=== PATIENT | female | born 1930 | race Caucasian/White ===

== ENCOUNTER → 2016-11-19 | Outpatient (CLI) | payer MEDICARE, OTHER ==
[~2016-11-19] MED LIST: ACET650T3 PO; ALEN10TA PO; AMLO10TA2 PO; AMLO5TAB2 PO; BIMA01SOL OU; BISO10TA PO; CALC600T60 PO; CARB10TACH PO; CARB300C7 PO; COSO1SOL3 OU; COUM2.5T17 PO; HYDR-3713 PO; ISTA0.5S OU; LATA5OPD OU; LEVO88TA3 PO; MULTCAP8 PO; PRED10PA PO; PRED10TA2 PO; PRED25TA PO; REFR0.5D8 OU; REST0.05 OU; SERT50TA PO; TIMO0.5S29 OU; VITA400C35 PO; VITA500C24 PO; VITA500T3 PO; WARF-23 PO; WARF05TA PO; [UNRECOGNIZED DRUG - CODE] PO
[2016-11-19 12:31] LABS: INR 1.05
--- NOTE | 2016-11-19 12:42 | REP ---
Clinical: Preoperative assessment. Technique: PA and lateral. Comparison: None. Findings: Linear fibroatelectatic changes along the basilar right upper lobe and diffuse chronic interstitial changes are suggested. No prior exams for comparison. The mediastinum and cardiac silhouette are relatively normal. Atherosclerotic changes to the thoracic aorta noted. Airway is midline. No effusion. No pneumothorax. Skeletal structures demonstrate age-related changes. Impression: Likely chronic appearing changes as described above. No prior examination available for comparison. Signed by Bismark Marie MD 11/19/2016 12:33 P
[2016-11-19 12:46] LABS: ALBUMIN 3.3 GM/DL (3.2-5.2); ALBUMIN/GLOBULIN RATIO 0.94 (1.00-1.93); BILIRUBIN,TOTAL 0.3 MG/DL (0.2-1.0); CALCIUM LEVEL 10.4 MG/DL (8.8-10.2); CREATININE FOR GFR 1.05 MG/DL (0.55-1.02); GLOMERULAR FILTRATION RATE 53.2 (>32); POTASSIUM SERUM 4.6 MEQ/L (3.5-5.1); TOTAL PROTEIN 6.8 GM/DL (6.4-8.2)
[2016-11-19 13:03] LABS: MEAN CORPUSCULAR HEMOGLOBIN 30.9 pg (27.0-33.0); MEAN CORPUSCULAR HGB CONC 31.6 g/dl (32.0-36.5); MEAN CORPUSCULAR VOLUME 97.7 fl (80.0-96.0); RED CELL DISTRIBUTION WIDTH 13.2 % (11.5-14.5); WHITE BLOOD COUNT 9.4 K/mm3 (4.0-10.0)
--- NOTE | 2016-11-21 13:25 | ECGEPIP ---
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
--- NOTE | 2016-11-24 20:45 | HPE ---
DATE OF PLANNED ADMISSION: 12/02/2016 REFERRING PHYSICIAN: Ye Gong MD CHIEF COMPLAINT: Right hip pain. HISTORY OF PRESENT ILLNESS: This a pleasant 86-year-old female with progressively worsening right hip pain and stiffness. She has failed to improve with conservative treatment. She has elected for surgery for her continued symptoms. She has pain with weightbearing activities and her activities of daily living. X-rays of her hip are notable for advanced osteoarthritis of the right hip joint. She has consented for a right total hip arthroplasty by Dr. Ye gong. Medical optimization was performed by Dr. Kolb. ALLERGIES: PENICILLIN. CURRENT MEDICATIONS: - Synthroid 88 mcg once a day - carbamazepine 100 mg 3 tablets once a day - bisoprolol 10 mg 1/2 tablet once a day - amlodipine 10 mg 1/2 tablet once a day - vitamin C 500 mg once a day - multivitamin once a day - Zoloft 50 mg once a day - Refresh Restasis eye drops when needed - atenolol in the morning - Lumigan at night PAST MEDICAL HISTORY: Includes hypertension, hypothyroidism, anxiety and depression. PAST SURGICAL HISTORY: Includes varicose vein removal, hysterectomy and cholecystectomy. SOCIAL HISTORY: This patient is retired. Does not smoke, does not drink alcohol. REVIEW OF SYSTEMS: This patient denies chest pain, heart palpitations, cough, wheezing, difficulty breathing and shortness of breath. She denies abdominal pain, nausea, vomiting, diarrhea or constipation. She denies recent upper respiratory infection or urinary tract infection symptoms. She does complain of persistent pain in her right hip and pain with weightbearing activities in her right hip. PHYSICAL EXAMINATION: General: She is well-nourished, well-developed in no acute distress, alert female patient. She walks with a moderate limp favoring her right lower extremity. She does use a walker. Vital signs: She is 62 inches tall, weighs 110 pounds with a temperature of 97.8, blood pressure 130/90, pulse of 62 and respirations of 16. Neck was supple without adenopathy or jugular venous distension. There were no carotid bruits appreciated upon auscultation. Lungs were clear to auscultation without rales or wheeze throughout. Heart: Regular rate and rhythm. Abdomen: Bowel sounds were present. Extremities: Examination of the hip revealed intact skin with decreased range of motion through the hip secondary to pain and stiffness. The limb is neurovascularly intact. LABORATORY DATA: Chest x-ray showed chronic appearing changes without any acute cardiopulmonary disease processes. EKG showed sinus bradycardia with occasional premature ventricular contraction (PVC) at 56 beats per minute. CBC showed a red count of 3.86, hemoglobin 11.9, MCV of 97.7. Mean corpuscular hemoglobin concentration of 31.6, otherwise within normal limits. Sed rate was 54, glucose 114, BUN 25, creatinine 1.05 for a GFR of 53.2. Sodium 138, potassium 4.6. Protime 13.8, INR 1.05. Urine culture showed E-coli. UA showed 1+ bacteria, otherwise within normal limits with a specific gravity 1.018. IMPRESSION: 1. Symptomatic osteoarthritis of the right hip. 2. Asymptomatic urinary tract infection. PLAN: The patient was placed on Macrobid by Dr. Kolb. She will be able to finish that course of antibiotics prior to her surgery. Otherwise, she is consented for a right total hip arthroplasty by Dr. Ye Gong.
== END ==
LOC: M ADMPAT 10:25
PROVIDERS: ATTEND Orthopaedic Surgery
DX: M16.11 Unilateral primary osteoarthritis, right hip (principal); Z79.01 Long term (current) use of anticoagulants; N39.0 Urinary tract infection, site not specified; B96.29 Other Escherichia coli [E. coli] as the cause of diseases classified elsewhere

== ENCOUNTER 2016-12-02 06:49 | Inpatient (IN) | payer MEDICARE, OTHER ==
[2016-11-19 11:21] VITALS: BP 128/78
[~2016-12-02] VITALS: Ht 160 cm; Wt 51.1 kg
[2016-12-02] VITALS (7 sets, daily range): BP systolic 124–182; BP diastolic 70–81
[~2016-12-02 06:49] MED LIST changes: -ACET650T3 PO; -AMLO10TA2 PO; -CARB10TACH PO; -CARB300C7 PO; -COSO1SOL3 OU; -COUM2.5T17 PO; -HYDR-3713 PO; -PRED10TA2 PO; -PRED25TA PO; -REFR0.5D8 OU; -TIMO0.5S29 OU; -VITA500C24 PO; -WARF-23 PO; -WARF05TA PO
[2016-12-02] MEDS ORDERED: LR 1,000 ML IV SCH ×2 (07:30→12:15)
[2016-12-02] MEDS ORDERED: TRANEXAMIC ACID 100 MG/ML 10ML VIAL As Ordered ONE (07:45)
[2016-12-02] MEDS ORDERED: EPINEPHrine INJ 1 MG/ML 1ML AMP As Ordered ONE (07:45)
[2016-12-02] MEDS ORDERED: BUPIVACAINE HCL 0.25% 30 ML VIAL As Ordered ONE (07:45)
[2016-12-02] MEDS ORDERED: CLINDAMYCIN INJ 900MG/6ML VIAL As Ordered ONE (07:45)
[2016-12-02] MEDS ORDERED: CLINDAMYCIN 600 MG in APPROPRIATE DILUENT 1 EA IV ONE (08:00)
[2016-12-02] MEDS ORDERED: LR 1,000 ML IV ONE (08:00)
[2016-12-02] MEDS ORDERED: CARB300C7 PO (08:35)
[2016-12-02] MEDS ORDERED: WARF05TA PO (08:35)
[2016-12-02] MEDS ORDERED: ACET650T3 PO (08:35)
[2016-12-02] MEDS: amLODIPine 5 MG TAB PO SCH (09:00)
[2016-12-02] MEDS ORDERED: MIDAZOLAM INJ 2 MG/2 ML VIAL (J2250) As Ordered ONE (10:43)
[2016-12-02] MEDS ORDERED: LIDOCAINE 2% INJ 100 MG/5 ML SDV (FOR ANES.) As Ordered ONE ×2 (10:45→13:23)
[2016-12-02] MEDS ORDERED: PROPOFOL 200 MG/20 ML VIAL As Ordered ONE ×2 (10:45→13:23)
[2016-12-02] MEDS ORDERED: HYDROCORTISONE 100 MG/2 ML VIAL (J1720) As Ordered ONE (11:21)
[2016-12-02] MEDS ORDERED: NALOXONE INJ 0.4 MG/1 ML VIAL (J2310) IV PRN (12:00)
[2016-12-02] MEDS ORDERED: diphenhydrAMINE INJ 50MG/ML VIAL (J1200) IV PRN (12:00)
[2016-12-02] MEDS ORDERED: NALBUPHINE HCL 10 MG/ML AMP (J2300) IV PRN (12:00)
[2016-12-02] MEDS ORDERED: EPIDURAL/PCA KEYS XX PRN (12:00)
[2016-12-02] MEDS ORDERED: ONDANSETRON 4MG/2ML VIAL (J2405) IV PRN ×3 (12:00→12:15)
[2016-12-02] MEDS ORDERED: FLEET ENEMA PR PRN (12:00)
[2016-12-02] MEDS ORDERED: MORPHINE 1MG/ML IN 0.9% NACL 100ML IV BAG IV PRN (12:00)
[2016-12-02] MEDS ORDERED: NORCO, ANEXSIA 5/325MG TABLET (HYDROcodone/ACETAMINOPHEN) PO PRN (12:15)
[2016-12-02] MEDS ORDERED: METOCLOPRAMIDE INJ 10MG/2ML VIAL (J2765) IV PRN (12:15)
[2016-12-02] MEDS ORDERED: fentaNYL 100 MCG/2 ML INJECTION (J3010) IV PRN (12:15)
--- NOTE | 2016-12-02 13:43 | CR ---
DATE OF CONSULTATION: 12/02/2016 REQUESTING PHYSICIAN: Dr. Ye Hodges. REASON FOR CONSULTATION: Medical management. SUBJECTIVE: The patient tells me she is feeling well. She is not in any significant pain at this time. She denies chest pain, shortness of breath, fevers, chills. OBJECTIVE: VITAL SIGNS: Temperature 97.1, pulse 44, respiratory rate 16, blood pressure 123/72, oxygen saturation 97% on two liters. GENERAL: She is a frail elderly female lying flat in bed. She does not appear to be in any acute distress. She is awake, alert, and oriented times three. HEENT: Cranial nerves II through XII are grossly intact. She has moist mucous membranes. No elevation of central venous pressure (CVP). CARDIOVASCULAR: S1, S2. Regular. RESPIRATORY: Clear. ABDOMEN: Benign. EXTREMITIES: She has no Drake catheter. Her right hip dressing is clean, dry and intact. No clubbing, cyanosis or edema. LABORATORY DATA: No recent labs or imaging. ASSESSMENT AND PLAN: This is an 86-year-old female postoperative day zero for right total hip replacement done electively. 1. Elective right total hip replacement related to osteoarthritis and rheumatologic disease. Plan as per Dr. Hodges of orthopedic surgery regarding Drake catheter, physical therapy, deep venous thrombosis (DVT) prophylaxis, perioperative management, and anticoagulation. 2. Sjogren's disease and polymyalgia rheumatica. The patient normally takes trazodone 50 mg daily which we will continue while she is in hospital. She did receive 50 of hydrocortisone in the operating room (OR). She was not hypotensive. We will monitor for any hypotension or evidence of adrenal insufficiency. May have played a role in the development of her hip pain. 3. Trigeminal neuralgia. Continue with carbamazepine extended release 300 mg. 4. Hypothyroidism. Continue with her home Synthroid. 5. Hypertension. Continue with amlodipine and bisoprolol; however, she has asymptomatic bradycardia at the present time, and so we will place holding parameter on these medications, especially her bisoprolol. 6. Anxiety/depression. Continue with Zoloft. 7. Glaucoma. Continue with Lumigan and Xalatan. 8. B12 deficiency. Continue with supplementation. DISPOSITION: The patient will continue to be followed on the hospitalist service by Dr. Velazquez, who will continue following at 7 a.m. Thank you for involving us in this interesting patient's care. Please do not hesitate to call if questions.
[2016-12-02] MEDS: LR 1,000 ML IV SCH (15:29)
[2016-12-02] MEDS ORDERED: COSO1SOL3 OU (15:58)
[2016-12-02] MEDS: SERTRALINE HCL 50 MG TAB PO SCH (16:00)
[2016-12-02] MEDS: CLINDAMYCIN 600 MG in APPROPRIATE DILUENT 1 EA IV SCH (16:00)
[2016-12-02] MEDS: CYANOCOBALAMIN 500 MCG TAB PO SCH (16:01)
[2016-12-02] MEDS: predniSONE 10 MG TAB PO SCH (16:01)
[2016-12-02] MEDS ORDERED: CALCIUM CARBONATE 500 MG CHEW U/D PO ONE (16:15)
[2016-12-02] MEDS ORDERED: WARFARIN SOD 5 MG TAB PO ONE (17:00)
[2016-12-02] MEDS: carBAMazepine XR 100 MG TAB PO SCH (21:26)
[2016-12-02] MEDS: LATANOPROST 0.005% OPHTH SOLN 2.5 ML OU SCH (21:37)
--- NOTE | 2016-12-02 22:41 | RO ---
DATE OF PROCEDURE: 12/02/2016 PREOPERATIVE DIAGNOSIS: Right hip osteoarthritis. POSTOPERATIVE DIAGNOSIS: Right hip osteoarthritis. PROCEDURE: Right total hip arthroplasty using a [place] size 3 regular offset stem with a +8.5 neck, 36 ball and a 52 cup. SURGEON: Dr. Ye Hodges RHEUMATOLOGY SPECIALIST: Luz Hodges ANESTHESIA: Spinal. ESTIMATED BLOOD LOSS: 200 mL. COMPLICATIONS: None. INDICATIONS: This is an 86-year-old woman who has had gradually worsening right hip pain. She wished to go ahead with surgical treatment having failed conservative management and understood the nature of this, the risks of bleeding , infection, damage to nerves, vessels, persistent pain, wear loosening, dislocation, leg length inequality, blood clots, medical problems, among others. Preoperative clearance was obtained. DESCRIPTION OF PROCEDURE: The patient taken to operating room and placed in the supine position after spinal anesthesia was induced. She was then turned into the left lateral decubitus position, and the right hip was prepped and draped in usual sterile fashion. I then, after time-out was performed, created a longitudinal incision over the lateral aspect of the hip. Sharp dissection was carried down through the subcutaneous tissue until the fascia was encountered. The fascia rowan was incised and exposed the abductors. The anterior 40% of the abductors was divided off the femur as I gradually externally rotated the femur and femoral neck. Once I had freed this up enough, we were able to dislocate the hip without difficulty. I then used the canal initiating reamer followed by the canal finding reamer and the lateralizing reamer, and then was able to ream up to the size 3 reamer. I then cut the neck off at about slightly less than a fingerbreadth up from the lesser trochanter. The head was removed, and we then directed our attention to the acetabulum. Anterior and posterior retractors were placed. The soft tissue was removed from around the acetabulum. I then sequentially reamed up to a size 51, had good concentric reaming and bleeding bone. I selected a 52 cup and impacted this in place in the appropriate amount of anteversion and horizontal tilt. Excellent fit was noted. It was very solidly placed. I made sure it was seated down and the apex hole eliminator was then placed. I then impacted in the polyethylene, and this was a 36 x 52 liner of Ultrex, which was impacted in and well seated. I had irrigated multiple times, I again irrigated. I directed attention to the femur and then broached up to a size 3, was not able to fully seat the size 3, but it fit very nicely in the proximal femur. I did a trial reduction, first with a 1.5, then went up to an 8.5 and had excellent soft tissue tension and excellent stability. There was minimal shuck in extension. I am very pleased with the position of the components. I then removed the trial components, inserted the actual stem and carefully tapped it down into place, made sure it filled the canal well and seemed to fit very well, then placed the 8.5 36 ball on, impacted this in place and then we reduced the hip with the assistant dean's help. I again put the hip through a range of motion; it was very stable in flexion internal rotation, extension external rotation. I had also previously removed some osteophytes anteriorly from the acetabulum. Once I was satisfied with the position the components and the placement, I then did final deep irrigation, placed some TXA solution and then closed the deep layer with #1 Vicryl suture. Repaired the abductor with #1 Vicryl suture with several stitches being placed through the bone. I then repaired the fascia rowan with #1 Vicryl suture and then we each did a running Stratafix suture in each direction. Irrigated, closed the subcu with #2-0 Vicryl and the skin with odin. Sterile dressing was applied, and she was taken to the recovery room in stable condition. There were no known complications. The plan will be routine postoperative. The assistant dean was instrumental in holding retractors, providing exposure and helping with reduction and dislocation and assisting in closure. LINA
--- NOTE | 2016-12-02 23:17 | ECGEPIP ---
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 No PVCs compared with 11/19/2016. Electronically Signed On 12-02-2016 23:16:52 EDT by Pierce Jaimes
[2016-12-03] MEDS: CLINDAMYCIN 600 MG in APPROPRIATE DILUENT 1 EA IV SCH (00:24)
[2016-12-03 02:16] VITALS: BP 124/72
[2016-12-03] MEDS: LR 1,000 ML IV SCH (02:18)
[2016-12-03 06:00] VITALS: BP 172/74
[2016-12-03] MEDS: LEVOTHYROXINE 88MCG TABLET (0.088 MG) PO SCH (06:03)
[2016-12-03] MEDS ORDERED: PERCOCET 5MG/325MG TAB PO PRN ×2 (06:45)
[2016-12-03] MEDS ORDERED: ONDANSETRON 4 MG TAB (S0181) PO PRN (06:45)
[2016-12-03 06:54] LABS: MEAN CORPUSCULAR HEMOGLOBIN 31.4 pg (27.0-33.0); MEAN CORPUSCULAR HGB CONC 32.1 g/dl (32.0-36.5); MEAN CORPUSCULAR VOLUME 97.7 fl (80.0-96.0); RED CELL DISTRIBUTION WIDTH 12.9 % (11.5-14.5); WHITE BLOOD COUNT 8.2 K/mm3 (4.0-10.0)
[2016-12-03 06:57] LABS: INR 1.87
[2016-12-03] MEDS: MIRALAX *UNIT DOSE* 17GM PACKET PO SCH (07:56)
[2016-12-03] MEDS: SERTRALINE HCL 50 MG TAB PO SCH (07:57)
[2016-12-03] MEDS: MOM 30ML SUSPENSION UDC PO SCH (07:57)
[2016-12-03] MEDS: amLODIPine 5 MG TAB PO SCH (07:57)
[2016-12-03] MEDS: predniSONE 10 MG TAB PO SCH (07:58)
[2016-12-03] MEDS: SENOKOT S TAB PO SCH ×2 (07:58→21:00)
[2016-12-03] MEDS: CYANOCOBALAMIN 500 MCG TAB PO SCH (07:58)
[2016-12-03] MEDS: BISOPROLOL FUMARATE 10 MG TAB PO SCH (07:58)
[2016-12-03] MEDS: NORCO, ANEXSIA 5/325MG TABLET (HYDROcodone/ACETAMINOPHEN) PO PRN ×2 (07:59→16:42)
[2016-12-03 10:00] VITALS: BP 125/75
[2016-12-03] MEDS ORDERED: CARB10TACH PO (10:24)
[2016-12-03] MEDS ORDERED: WARF-23 PO (10:24)
[2016-12-03] MEDS ORDERED: LATA5OPD OU (10:24)
[2016-12-03] MEDS ORDERED: PRED10TA2 PO (10:24)
[2016-12-03] MEDS ORDERED: REFR0.5D8 OU (10:24)
[2016-12-03] MEDS ORDERED: AMLO10TA2 PO (10:24)
--- NOTE | 2016-12-03 11:55 | IPN ---
DATE OF ADMISSION: 12/02/2016 Patient seen and examined. She wished to go ahead with a right total hip arthroplasty. She understands the nature of this, the risk of bleeding, infection, damage to nerves, vessels, persistent pain, wear, loosening, dislocation, blood clots, medical problems, , among others. She understands that there may be a role for cementing in this prosthesis depending upon her bone quality.
--- NOTE | 2016-12-03 12:47 | REP ---
Right hip series: Two views. History: Recheck placement. No comparison views. Findings: AP and cross-table lateral views of the right hip demonstrate that the patient is status post right hip arthroplasty. The prosthetic components of the right hip articulation are well aligned with respect to each other and with respect to their [place] bones. There is periarticular soft-tissue swelling and emphysema. Lateral skin odin are noted. Impression: Status post right hip arthroplasty. Signed by Javier Lara MD 12/03/2016 02:03 P
[2016-12-03] MEDS ORDERED: REFRESH TEARS OU PRN (13:00)
[2016-12-03 13:37] LABS: ANION GAP 6 MEQ/L (8-16); BLOOD UREA NITROGEN 16 MG/DL (7-18); CALCIUM LEVEL 10.4 MG/DL (8.8-10.2); CARBON DIOXIDE LEVEL 30 MEQ/L (21-32); CHLORIDE LEVEL 99 MEQ/L (98-107); CHOLESTEROL LEVEL 153 MG/DL (<200); CREATININE FOR GFR 0.85 MG/DL (0.55-1.02); GLOMERULAR FILTRATION RATE > 60.0 (>32); GLUCOSE, FASTING 158 MG/DL (83-110); POTASSIUM SERUM 4.5 MEQ/L (3.5-5.1); SODIUM LEVEL 135 MEQ/L (136-145); TRIGLYCERIDES LEVEL 80 MG/DL (<150)
[2016-12-03 14:00] VITALS: BP 146/65
[2016-12-03] MEDS: DORZOLAMIDE TIMOLOL OU SCH ×2 (14:19→21:00)
[2016-12-03] MEDS: RESTASIS 0.05% OU SCH ×2 (14:19→21:10)
[2016-12-03] MEDS ORDERED: WARFARIN SOD 5 MG TAB PO ONE (17:00)
[2016-12-03] MEDS: LATANOPROST 0.005% OPHTH SOLN 2.5 ML OU SCH (21:00)
[2016-12-03] MEDS: carBAMazepine XR 100 MG TAB PO SCH (21:09)
[2016-12-03 22:00] VITALS: BP 128/60
[2016-12-04 06:00] VITALS: BP 136/66
[2016-12-04] MEDS: NORCO, ANEXSIA 5/325MG TABLET (HYDROcodone/ACETAMINOPHEN) PO PRN ×2 (07:07→13:00)
--- NOTE | 2016-12-04 07:32 | IPN ---
DATE OF VISIT: 12/03/2016 This morning the patient was seen and examined. Her chart has been reviewed. Despite blood pressure of 172 systolic she denies any chest pain, pressure or tightness, shortness of breath, nausea or vomiting. No change of vision or headaches. Afebrile overnight. No other issues per nursing aside from pain at the right hip. VITAL SIGNS: Temperature 98.6, pulse 70, respiratory 18, blood pressure 125/75, 100% two liters nasal cannula. GENERAL: The patient is awake, alert and oriented to person and place. HEART: S1, S2, sinus rhythm. ABDOMEN: Soft, nontender, nondistended. Positive bowel sounds. LUNGS: Clear to auscultation, no wheezing, rales or rhonchi. EXTREMITIES: No clubbing, cyanosis or pitting edema. The patient is status post right hip surgical changes. LABORATORY DATA: White count 8.2, hemoglobin 10, hematocrit 31, platelet count 303. IMAGING STUDIES: Imaging studies have been reviewed. ASSESSMENT AND PLAN: This is an 86-year-old female postoperative day for right hip replacement done electively for severe osteoarthritis with limitations of activities of daily living. IMPRESSION: Elective right hip total replacement secondary to osteoarthritis and rheumatologic disease. PLAN: 1. Per Dr. Hodges, orthopedic surgeon regarding Drake, physical therapy, deep venous thrombosis (DVT) prophylaxis, bowel regimen and pain control. 2. Sj gren's disease and polymyalgia rheumatica (PMR). The patient normally takes trazodone and will continue to receive 50 mg hydrocortisone in the operating room (OR). She was not hypotensive. We will monitor for changes. 3. Trigeminal neuralgia. Carbamazepine extended release 300 mg. 4. Hypothyroidism. On Synthroid, check TSH in the morning. 5. Hypertension. On Norvasc, bisoprolol. 6. Anxiety/depression. Zoloft. 7. Glaucoma. Lumigan and Xalatan. 8. B12 deficiency. Continue with supplementation.
[2016-12-04 08:04] LABS: MEAN CORPUSCULAR HGB CONC 32.4 g/dl (32.0-36.5); MEAN CORPUSCULAR VOLUME 95.9 fl (80.0-96.0); RED CELL DISTRIBUTION WIDTH 12.7 % (11.5-14.5); WHITE BLOOD COUNT 12.1 K/mm3 (4.0-10.0)
[2016-12-04 08:10] LABS: INR 3.4
[2016-12-04] MEDS ORDERED: PHYTONADIONE 1 MG/0.5 ML SYRINGE (J3430) SQ ONE (08:30)
[2016-12-04] MEDS: SENOKOT S TAB PO SCH ×2 (09:00→21:00)
[2016-12-04] MEDS: MOM 30ML SUSPENSION UDC PO SCH (09:00)
[2016-12-04] MEDS: MIRALAX *UNIT DOSE* 17GM PACKET PO SCH (09:00)
[2016-12-04] MEDS: BISOPROLOL FUMARATE 10 MG TAB PO SCH (10:11)
[2016-12-04] MEDS: MORPHINE 15 MG SA TAB PO SCH ×2 (10:11→21:05)
[2016-12-04] MEDS: LEVOTHYROXINE 88MCG TABLET (0.088 MG) PO SCH (10:11)
[2016-12-04] MEDS: SERTRALINE HCL 50 MG TAB PO SCH (10:11)
[2016-12-04] MEDS: CYANOCOBALAMIN 500 MCG TAB PO SCH (10:12)
[2016-12-04] MEDS: amLODIPine 5 MG TAB PO SCH (10:12)
[2016-12-04] MEDS: predniSONE 10 MG TAB PO SCH (10:12)
[2016-12-04] MEDS: DORZOLAMIDE TIMOLOL OU SCH ×2 (10:13→21:07)
[2016-12-04] MEDS: RESTASIS 0.05% OU SCH ×2 (10:14→21:07)
[2016-12-04 14:00] VITALS: BP 122/59
[2016-12-04] MEDS: ACETAMINOPHEN TAB 650MG DOSE (2X325MG) PO PRN (15:07)
[2016-12-04] MEDS: carBAMazepine XR 100 MG TAB PO SCH (21:06)
[2016-12-04] MEDS: LATANOPROST 0.005% OPHTH SOLN 2.5 ML OU SCH (21:06)
[2016-12-04 22:00] VITALS: BP 146/72
[2016-12-05 06:00] VITALS: BP 138/67
[2016-12-05] MEDS: ACETAMINOPHEN TAB 650MG DOSE (2X325MG) PO PRN (06:33)
[2016-12-05] MEDS: LEVOTHYROXINE 88MCG TABLET (0.088 MG) PO SCH (06:34)
[2016-12-05 07:18] LABS: INR 1.9
[2016-12-05] MEDS: BISOPROLOL FUMARATE 10 MG TAB PO SCH (08:26)
[2016-12-05] MEDS: SENOKOT S TAB PO SCH (08:26)
[2016-12-05] MEDS: MORPHINE 15 MG SA TAB PO SCH (08:26)
[2016-12-05 08:27] VITALS: BP 138/67
[2016-12-05] MEDS: CYANOCOBALAMIN 500 MCG TAB PO SCH (08:27)
[2016-12-05] MEDS: predniSONE 10 MG TAB PO SCH (08:27)
[2016-12-05] MEDS: SERTRALINE HCL 50 MG TAB PO SCH (08:27)
[2016-12-05] MEDS: amLODIPine 5 MG TAB PO SCH (08:27)
[2016-12-05] MEDS: DORZOLAMIDE TIMOLOL OU SCH (08:28)
[2016-12-05] MEDS: RESTASIS 0.05% OU SCH (08:28)
[2016-12-05] MEDS: MOM 30ML SUSPENSION UDC PO SCH (08:29)
[2016-12-05] MEDS: MIRALAX *UNIT DOSE* 17GM PACKET PO SCH (08:29)
[2016-12-05] MEDS ORDERED: HYDR-3713 PO (08:34)
[2016-12-05] MEDS ORDERED: COUM2.5T17 PO (08:34)
--- NOTE | 2016-12-09 14:59 | DSES ---
DATE OF ADMISSION: 12/02/2016 DATE OF DISCHARGE: 12/05/2016 ATTENDING PHYSICIAN: Dr. Ye Hodges ADMITTING DIAGNOSIS: Right hip osteoarthritis. OTHER DIAGNOSES: 1. Sjogren's disease. 2. Polymyalgia rheumatica. 3. Trigeminal neuralgia. 4. Hypothyroidism. 5. Hypertension. 6. Anxiety. 7. Depression. 8. Glaucoma. 9. B12 deficiency. DISCHARGE DIAGNOSIS: Right hip osteoarthritis, status post right total hip arthroplasty. HISTORY OF PRESENT ILLNESS: The patient is an 86-year-old female with progressively worsening right hip pain and stiffness. She failed to improve with conservative measures, so she consented for an elective right total hip arthroplasty with Dr. Hodges. Operation performed was right total hip arthroplasty. HOSPITALIZATION COURSE: The patient underwent a right total hip arthroplasty under spinal anesthesia, which was uneventful. Hospital course was without complication. The patient was up with physical therapy (PT) per their protocol , weight bearing as tolerated on the right lower extremity. She was stable upon discharge and will resume her preoperative medications and diet. She was discharged on oral pain medications. The patient will continue to take her Coumadin and use her thromboembolic deterrent stockings for 30 days postoperatively to prevent deep vein thrombosis (DVT). The patient will followup in our office in 12 to 14 days for wound check and staple removal. She does agree to return sooner if there is any increased pain, redness, drainage, numbness and tingling, fever greater than 101 degrees of any other concerns. Please see medical record for additional details. LINA
[2017-03-20] MEDS ORDERED: PRED25TA PO (09:12)
[2017-03-20] MEDS ORDERED: VITA500C24 PO (09:12)
[2017-03-20] MEDS ORDERED: TIMO0.5S29 OU (09:12)
== END 2016-12-05 11:00 | disposition home health service (06) | DRG 470 ==
LOC: M OR 06:49 → M MS5PR 13:50
PROVIDERS: ADMIT Orthopaedic Surgery; ATTEND Orthopaedic Surgery
PROC: 0SR902Z Replacement of Right Hip Joint with Metal on Polyethylene Synthetic Substitute, Open Approach (ICD-10-PCS; principal; 2016-12-02 09:15)
DX: M16.11 Unilateral primary osteoarthritis, right hip (principal); E03.9 Hypothyroidism, unspecified; F41.9 Anxiety disorder, unspecified; F32.9 Major depressive disorder, single episode, unspecified; I10 Essential (primary) hypertension; E53.8 Deficiency of other specified B group vitamins; H40.9 Unspecified glaucoma; G50.0 Trigeminal neuralgia; M35.3 Polymyalgia rheumatica; M35.00 Sjogren syndrome, unspecified

== ENCOUNTER 2017-04-23 11:36 | Day surgery (SDC) | payer MEDICARE, OTHER ==
[~2017-04-23] VITALS: Ht 157.5 cm; Wt 51.4 kg
[~2017-04-23 11:36] MED LIST changes: +ACET650T3 PO; +AMLO10TA2 PO; +CARB10TACH PO; +CARB300C7 PO; +COSO1SOL3 OU; +COUM2.5T17 PO; +HYDR-3713 PO; +OFLOXACIN 0.3 % (OCUFLOX) OPTH SOL 5ML OS ONE; +PHENYLEPHRINE 2.5% OPHTH SOL 2ML OS ONE; +PRED10TA2 PO; +PRED25TA PO; +PROPARACAINE 0.5% OPHTH SOL 15ML OS ONE; +REFR0.5D8 OU; +TIMO0.5S29 OU; +TROPICAMIDE 1% OPHTH SOLN 2ML OS ONE; +VITA500C24 PO; +WARF-23 PO; +WARF05TA PO
[2017-04-23] MEDS ORDERED: ACETYLCHOLINE OPHTH SOLN 1% 2ML (MIOCHOL-E) As Ordered ONE (15:16)
[2017-04-23] MEDS ORDERED: DUOVISC (0.50ML VISCOAT/0.55ML PROVISC) OPHTH KIT As Ordered ONE (15:16)
[2017-04-23] MEDS ORDERED: BALANCED SALT IRRIGATION SOLUTION 500ML BAG (FOR OR EYE MACHINE) As Ordered ONE (15:16)
[2017-04-23] MEDS ORDERED: POVIDONE-IODINE 5% OPHTH PREP SOL 30ML As Ordered ONE (15:16)
[2017-04-23] MEDS ORDERED: LIDOCAINE 0.75%/EPINEPHRINE 0.025% IN BSS 1ML SYR INTRACAMERAL (OR ONLY) As Ordered ONE (15:16)
[2017-04-23] MEDS ORDERED: SERT50TA PO (15:40)
[2017-04-23] MEDS ORDERED: MIDAZOLAM INJ 2 MG/2 ML VIAL (J2250) As Ordered ONE (15:55)
[2017-04-23] MEDS ORDERED: fentaNYL 100 MCG/2 ML INJECTION (J3010) As Ordered ONE (15:55)
[2017-04-23 16:50] VITALS: BP 178/74
--- NOTE | 2017-04-24 13:09 | RO ---
DATE OF PROCEDURE: 04/23/2017 PREOPERATIVE DIAGNOSES: 1. Visually significant nuclear sclerotic cataract left eye. 2. Small pupil. POSTOPERATIVE DIAGNOSES: 1. Visually significant nuclear sclerotic cataract left eye. 2. Small pupil. PROCEDURE: Complex cataract extraction and insertion of intraocular lens implant, AU00T0, 15.5 left eye with use of eye ring. SURGEON: Kailash Kemp DO BARREL CENTERER: ANESTHESIA: Local with monitored anesthesia care (MAC). COMPLICATIONS: None. POSTOPERATIVE CONDITION: Stable. INDICATION FOR SURGERY: Blurred vision left eye affecting patient's activities of daily living. DESCRIPTION OF PROCEDURE: The patient was seen in the preoperative area and properly identified. The correct operative eye was identified and marked. Attention was turned to that eye. The patient received topical antibiotics in the preoperative area. The patient then received topical dilating drops consisting of tropicamide and phenylephrine. The patient was then transferred to the operating room. The correct side was re-identified. The patient received topical anesthetics and antibiotics on the surface of the eye. The eye was prepped and draped in a sterile fashion. The upper and lower eyelids were isolated with Tegaderm tape, and the lids were held open with an adjustable speculum. Using a sideport blade, a paracentesis incision was made. Intraocular preservative-free lidocaine was then injected into the anterior chamber. Viscoelastic was then injected into the anterior chamber through the paracentesis. Using a 2.4 mm sharp-tipped keratome, the anterior chamber was entered via a temporal clear corneal incision. An eye ring was placed to expand the pupil. A continuous curvilinear capsulorrhexis was created with the aid of a 26-gauge cystotome and Utrata forceps. Hydrodissection was performed with balanced salt solution (BSS) on a blunt cannula until the nucleus was freely mobile. The crystalline lens was phacoemulsified and aspirated. Additional cohesive viscoelastic was placed into the capsular bag to deepen it. A AU00T0, 15.5 diopter lens was placed into the capsular bag and confirmed by visualizing the continuous curvilinear capsulorrhexis. Additional irrigation and aspiration was used to remove cortical material and remaining viscoelastic. After the implant was placed within the capsular bag, the eye ring was removed from the eye. The clear corneal incision was hydrated with BSS on a blunt cannula. The lens was well positioned. The incisions were then tested for leaks and found to be negative. The eye was then palpated for appropriate pressure and adjusted accordingly with BSS. The eyelid speculum was carefully removed. TobraDex ointment was placed in the eye. An eye patch and shield were then secured over the eye.
== END 2017-04-23 17:09 | disposition home or self-care (01) ==
LOC: M SDC 11:36
PROVIDERS: ATTEND Ophthalmology
DX: H25.12 Age-related nuclear cataract, left eye (principal); H21.561 Pupillary abnormality, right eye; I10 Essential (primary) hypertension; E03.9 Hypothyroidism, unspecified; F32.9 Major depressive disorder, single episode, unspecified; F41.9 Anxiety disorder, unspecified; G50.0 Trigeminal neuralgia; Z88.0 Allergy status to penicillin; Z79.899 Other long term (current) drug therapy; M35.3 Polymyalgia rheumatica
CPT/HCPCS: 66982; J2250; J3010; V2632

== ENCOUNTER → 2017-06-15 | Outpatient (REF) | payer MEDICARE, OTHER ==
[2017-06-15 16:02] LABS: ESTIMATED AVERAGE GLUCOSE 131 MG/DL (60-110); HEMOGLOBIN A1c 6.2 %
[2017-06-15 16:14] LABS: VITAMIN B12 LEVEL 1685 PG/ML
[2017-06-15 16:15] LABS: FOLATE 11.3 NG/ML
== END ==
LOC: M LABNEURO 11:06
DX: E11.9 Type 2 diabetes mellitus without complications (principal)
CPT/HCPCS: 82746

== ENCOUNTER 2020-06-18 10:46 | Emergency (ER) | payer MEDICARE, OTHER ==
[~2020-06-18] VITALS: Ht 162.6 cm; Wt 55.0 kg
[~2020-06-18 10:46] MED LIST changes: -ALEN10TA PO; +ALEN10TA5 PO; -AMLO10TA2 PO; +AMLO1TAB24 PO; +AMLO1TAB25 PO; -AMLO5TAB2 PO; +AZIT500T5 PO; -BISO10TA PO; +BISO10TA13 PO; +BISO5TAB14 PO; +CARB1CAP3 PO; +CARB300C6 PO; -CARB300C7 PO; +CEFD1CAP8 PO; +CHOL100029 PO; +CYAN500T14 PO; +DORZ2SOL5 OU; +LATA0.0013 OU; -LATA5OPD OU; +LEVA1TAB2 PO; -OFLOXACIN 0.3 % (OCUFLOX) OPTH SOL 5ML OS ONE; -PHENYLEPHRINE 2.5% OPHTH SOL 2ML OS ONE; +PRED1TABL PO; -PROPARACAINE 0.5% OPHTH SOL 15ML OS ONE; +SERT-141 PO; -SERT50TA PO; +SERT50TA29 PO; +SYST1SOL OU; -TROPICAMIDE 1% OPHTH SOLN 2ML OS ONE; -VITA500T3 PO; -[UNRECOGNIZED DRUG - CODE] PO
[2020-06-18 11:26] LABS: BASO # 0.1 10^3/uL (0.0-0.2); BASO % 0.4 % (0.0-1.0); EOS % 0.3 % (0.0-3.0); HEMATOCRIT 36.7 % (36.0-47.0); HEMOGLOBIN 11.2 g/dl (12.0-15.5); LYMPH # 0.6 10^3/uL (1.5-5.0); LYMPH % 4.2 % (24.0-44.0); MEAN CORPUSCULAR HEMOGLOBIN 30.4 pg (27.0-33.0); MEAN CORPUSCULAR HGB CONC 30.5 g/dl (32.0-36.5); MEAN CORPUSCULAR VOLUME 99.5 fl (80.0-96.0); MONO # 0.7 10^3/uL (0.0-0.8); MONO % 5.1 % (0.0-5.0); NEUTROPHILS # 11.8 10^3/uL (1.5-8.5); NEUTROPHILS % 89.2 % (36.0-66.0); PLATELET COUNT, AUTOMATED 351 10^3/uL (150-450); RED BLOOD COUNT 3.69 10^6/uL (4.00-5.40); WHITE BLOOD COUNT 13.2 10^3/uL (4.0-10.0)
[2020-06-18 12:10] LABS: CALCIUM LEVEL 9.9 MG/DL (8.8-10.2); CREATININE FOR GFR 1.3 MG/DL (0.55-1.30); GLOMERULAR FILTRATION RATE 41.2 (>32); MAGNESIUM LEVEL 2.2 MG/DL (1.8-2.4); POTASSIUM SERUM 4.4 MEQ/L (3.5-5.1); THYROID STIMULATING HORMONE 1.29 uIU/ML (0.358-3.740)
[2020-06-18] MEDS ORDERED: NS 1,000 ML IV ONE (12:45)
[2020-06-18 17:15] VITALS: BP 166/80
--- NOTE | 2020-06-20 14:22 | ECGEPIP ---
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
== END 2020-06-18 17:33 | disposition home or self-care (01) ==
LOC: M ED 10:46 → EDBD 10:46 → M ED 17:33
DX: R55 Syncope and collapse (principal); I10 Essential (primary) hypertension; Z88.0 Allergy status to penicillin; Z79.899 Other long term (current) drug therapy